=== PATIENT | female | born 1950 | race Two or more races ===

== ENCOUNTER 2017-11-26 18:49 | Inpatient (IN) | payer MEDICARE, MEDICAID ==
[~2017-11-26] VITALS: Ht 167.6 cm; Wt 94.1 kg
[2017-11-26] MEDS: FUROSEMIDE 20 MG/2 ML IV SCH (12:25)
[~2017-11-26 18:49] MED LIST: ACID1TAB3 PO; AMOX1TAB64 PO; CEFA1VIA2 IV; CIPR400V6 IV; DIABETES MED; ENAL10TA PO; ENOX40SY4 SQ; HIGH CHOLESTEROL MED; HYDR-3240 PO; INSU100I11 SC; NPH,100V SC; ONDA4SOL2 IV; OXYC1TAB7 PO; PIPE3.375 IV; POLY17PO5 PO; SIMV40TA3 PO; VANC750V2 IV
[2017-11-26] MEDS ORDERED: SODIUM CHLORIDE FLUSH 10ML SYR IVF ONE (19:30)
[2017-11-26 19:38] LABS: ALANINE AMINOTRANSFERASE 25 U/L (12-78); ALBUMIN 3.4 g/dL (3.4-5.0); ANION GAP 8 mmol/L (5-15); CALCIUM 9.1 mg/dL (8.5-10.1); CHLORIDE 110 mmol/L (98-107); CREATININE 1.79 mg/dL (0.55-1.02)
[2017-11-26 19:42] LABS: ALKALINE PHOSPHATASE 133 U/L (45-117); BASOPHILS % (AUTO) 1 % (0-1); BILIRUBIN,TOTAL 0.9 mg/dL (0.2-1.0); EOSINOPHILS # (AUTO) 0.29 x10^3/uL (0-0.4); EOSINOPHILS % (AUTO) 2 % (1-7); LYMPHOCYTES # (AUTO) 2.13 x10^3/uL (1-3.4); LYMPHOCYTES % (AUTO) 17 % (22-44); MD NO; MEAN CORPUSCULAR HEMOGLOBIN 30.3 pg (27.0-34.8); MEAN CORPUSCULAR HGB CONC 33.5 g/dL (32.4-35.8); MEAN CORPUSCULAR VOLUME 90.5 fL (80-100); MEAN PLATELET VOLUME 8.3 fL (7.4-10.4); MONOCYTES # (AUTO) 0.77 x10^3/uL (0.2-0.8); MONOCYTES % (AUTO) 6 % (2-9); NEUTROPHILS # (AUTO) 9.28 x10^3/uL (1.8-6.8); NEUTROPHILS % (AUTO) 74 % (42-75); PLATELET COUNT 285 x10^3/uL (130-400); RED BLOOD COUNT 4.65 x10^6/uL (3.82-5.3); RED CELL DISTRIBUTION WIDTH 14.4 % (9.6-15.2); TOTAL PROTEIN 8.7 g/dL (6.4-8.2)
[2017-11-26 19:49] LABS: INTERNATIONAL NORMALIZED RATIO 1.06 (0.93-1.1); PROTHROMBIN TIME 10.9 Seconds (9.6-11.5)
[2017-11-26] MEDS ORDERED: ATOR10TA9 PO (20:16)
[2017-11-26] MEDS ORDERED: INSU100I13 SQ (20:16)
[2017-11-26] MEDS ORDERED: MULT-758 PO (20:16)
[2017-11-26] MEDS ORDERED: METO25TA35 PO (20:16)
[2017-11-26] MEDS ORDERED: ASPI-515 PO (20:16)
[2017-11-26] MEDS ORDERED: LISI-167 PO (20:16)
[2017-11-26] MEDS ORDERED: AMLO2.5T PO (20:16)
[2017-11-26] MEDS ORDERED: FUROSEMIDE 40 MG/4 ML IV ONE (21:00)
[2017-11-26] MEDS ORDERED: FUROSEMIDE 20 MG/2 ML ONE (21:27)
[2017-11-26 22:09] VITALS: BP 156/73
[2017-11-26] MEDS ORDERED: hydrALAzine 20 MG/ML, 1ML IVPush PRN (23:30)
[2017-11-26] MEDS ORDERED: ACETAMINOPHEN 325 MG TABLET PO PRN (23:30)
[2017-11-26] MEDS ORDERED: ENOXAPARIN 40 MG/0.4 ML SQ SCH (23:30)
[2017-11-26] MEDS ORDERED: morphine SULFATE 10 MG/ML, 1ML IVPush PRN (23:30)
[2017-11-26] MEDS ORDERED: OXYcodone IR 5MG TABLET PO PRN (23:30)
[2017-11-26] MEDS ORDERED: BISACODYL 10 MG SUPP PR PRN (23:30)
[2017-11-26] MEDS ORDERED: LABETALOL 5MG/ML, 20ML IVPush PRN (23:30)
[2017-11-26] MEDS ORDERED: ONDANSETRON 2MG/ML, 2ML IVPush PRN (23:30)
[2017-11-26] MEDS ORDERED: ENALAPRILAT 1.25 MG/ML, 2ML IVPush PRN (23:30)
[2017-11-26] MEDS ORDERED: PROMETHAZINE 25 MG/ML, 1ML IM PRN (23:30)
[2017-11-26] MEDS ORDERED: DOCUSATE 100 MG CAPSULE PO PRN (23:30)
[2017-11-26] MEDS ORDERED: POLYETHYLENE GLYCOL 17 GM PACKET PO PRN (23:30)
[2017-11-26] MEDS ORDERED: ONDANSETRON ODT 4 MG PO PRN (23:30)
[2017-11-26 23:51] LABS: HEMOGLOBIN A1C 8.4 % (4.2-6.3)
[2017-11-26 23:52] LABS: FREE T4 (FREE THYROXINE) 1.31 ng/dL (0.76-1.46); THYROID STIMULATING HORMONE 3.87 mIU/L (0.358-3.740)
[2017-11-27] MEDS: METOPROLOL TARTRATE 25 MG TABLET PO SCH ×3 (00:33→20:49)
[2017-11-27] MEDS: INSULIN GLARGINE 100 UNITS/ML, PEN SQ-INSULIN SCH ×2 (00:33→20:48)
[2017-11-27 02:39] LABS: BASOPHILS % (AUTO) 0 % (0-1); EOSINOPHILS % (AUTO) 3 % (1-7); LYMPHOCYTES % (AUTO) 20 % (22-44); MEAN CORPUSCULAR HEMOGLOBIN 29.9 pg (27.0-34.8); MEAN CORPUSCULAR HGB CONC 33.3 g/dL (32.4-35.8); MEAN CORPUSCULAR VOLUME 89.8 fL (80-100); MEAN PLATELET VOLUME 8.1 fL (7.4-10.4); MONOCYTES % (AUTO) 7 % (2-9); NEUTROPHILS # (AUTO) 8.14 x10^3/uL (1.8-6.8); NEUTROPHILS % (AUTO) 70 % (42-75); PLATELET COUNT 266 x10^3/uL (130-400); RED CELL DISTRIBUTION WIDTH 14.6 % (9.6-15.2)
[2017-11-27 02:40] LABS: BASOPHILS # (AUTO) 0.01 x10^3/uL (0-0.1); LYMPHOCYTES # (AUTO) 2.34 x10^3/uL (1-3.4); MD NO; MONOCYTES # (AUTO) 0.83 x10^3/uL (0.2-0.8)
[2017-11-27 02:52] VITALS: BP 136/75
[2017-11-27 02:52] LABS: ALANINE AMINOTRANSFERASE 24 U/L (12-78); ALBUMIN 3.1 g/dL (3.4-5.0); ANION GAP 5 mmol/L (5-15); CALCIUM 8.9 mg/dL (8.5-10.1); CHLORIDE 110 mmol/L (98-107); CHOLESTEROL, TOTAL 99 mg/dL (140-239); CREATININE 1.84 mg/dL (0.55-1.02); TRIGLYCERIDES 96 mg/dL (50-200); VLDL CHOLESTEROL 19 mg/dL (0-25)
[2017-11-27 02:54] LABS: ALKALINE PHOSPHATASE 117 U/L (45-117); BILIRUBIN,TOTAL 0.9 mg/dL (0.2-1.0); CHOL/HDL RATIO 2.7; HDL CHOL % 37 % (28-40); HDL CHOLESTEROL (DIRECT) 37 mg/dL (40-60); LDL CHOLESTEROL,CALCULATED 43 mg/dL (54-169); LDL/HDL RATIO 1.2 (0.5-3.0); TOTAL PROTEIN 8.1 g/dL (6.4-8.2)
[2017-11-27 02:59] LABS: TROPONIN I < 0.015 ng/mL (0.000-0.045)
[2017-11-27 06:16] LABS: MICROSCOPIC NOT IND
[2017-11-27 06:21] LABS: CULTURE INDICATED? NO
[2017-11-27 06:33] VITALS: BP 144/83
[2017-11-27 08:25] LABS: TROPONIN I < 0.015 ng/mL (0.000-0.045)
[2017-11-27] MEDS: LISINOPRIL 10 MG TABLET PO SCH (08:38)
[2017-11-27] MEDS: MULTIVITAMIN 1 TABLET PO SCH (08:38)
[2017-11-27] MEDS: FUROSEMIDE 20 MG/2 ML IV SCH (08:39)
[2017-11-27] MEDS: ENOXAPARIN 30 MG/0.3 ML SQ SCH (08:39)
[2017-11-27 08:46] VITALS: BP 136/71
[2017-11-27] MEDS: ASPIRIN 81 MG TABLET EC PO SCH (08:51)
[2017-11-27] MEDS: FLUTICASONE/VILANTEROL 200-25MCG/INH INH SCH (08:51)
[2017-11-27] MEDS: INSULIN LISPRO 100 UNITS/ML, PEN SQ-INSULIN SCH ×4 (08:52→20:48)
[2017-11-27 13:01] VITALS: BP 133/77
[2017-11-27] MEDS: FUROSEMIDE 20 MG TABLET PO SCH (16:42)
[2017-11-27 19:09] VITALS: BP 133/78
[2017-11-28 01:19] VITALS: BP 125/74
[2017-11-28 05:21] LABS: BASOPHILS # (AUTO) 0.01 x10^3/uL (0-0.1); BASOPHILS % (AUTO) 0 % (0-1); EOSINOPHILS # (AUTO) 0.41 x10^3/uL (0-0.4); EOSINOPHILS % (AUTO) 4 % (1-7); LYMPHOCYTES # (AUTO) 2.38 x10^3/uL (1-3.4); LYMPHOCYTES % (AUTO) 20 % (22-44); MD NO; MEAN CORPUSCULAR HEMOGLOBIN 30.1 pg (27.0-34.8); MEAN CORPUSCULAR HGB CONC 33.4 g/dL (32.4-35.8); MEAN CORPUSCULAR VOLUME 90.3 fL (80-100); MEAN PLATELET VOLUME 8.1 fL (7.4-10.4); MONOCYTES # (AUTO) 0.77 x10^3/uL (0.2-0.8); MONOCYTES % (AUTO) 7 % (2-9); NEUTROPHILS % (AUTO) 70 % (42-75); PLATELET COUNT 274 x10^3/uL (130-400); RED BLOOD COUNT 5.08 x10^6/uL (3.82-5.3); RED CELL DISTRIBUTION WIDTH 14.5 % (9.6-15.2)
[2017-11-28 05:24] LABS: ANION GAP 9 mmol/L (5-15); CALCIUM 8.7 mg/dL (8.5-10.1); CHLORIDE 105 mmol/L (98-107)
[2017-11-28 05:26] LABS: CREATININE 1.96 mg/dL (0.55-1.02)
[2017-11-28] MEDS: INSULIN LISPRO 100 UNITS/ML, PEN SQ-INSULIN SCH ×4 (07:00→21:38)
[2017-11-28 07:44] VITALS: BP 135/76
[2017-11-28] MEDS: ENOXAPARIN 30 MG/0.3 ML SQ SCH (08:18)
[2017-11-28] MEDS: FLUTICASONE/VILANTEROL 200-25MCG/INH INH SCH (08:18)
[2017-11-28] MEDS: ASPIRIN 81 MG TABLET EC PO SCH (08:18)
[2017-11-28] MEDS: FUROSEMIDE 20 MG TABLET PO SCH ×2 (08:19→16:26)
[2017-11-28] MEDS: METOPROLOL TARTRATE 25 MG TABLET PO SCH ×2 (08:19→21:37)
[2017-11-28] MEDS: LISINOPRIL 10 MG TABLET PO SCH (08:19)
[2017-11-28] MEDS: MULTIVITAMIN 1 TABLET PO SCH (08:19)
[2017-11-28 13:57] VITALS: BP 128/75
[2017-11-28] MEDS ORDERED: FUROSEMIDE 20 MG/2 ML IV ONE (15:30)
[2017-11-28 18:55] VITALS: BP 140/90
[2017-11-28 21:36] VITALS: BP 138/78
[2017-11-28] MEDS: INSULIN GLARGINE 100 UNITS/ML, PEN SQ-INSULIN SCH (21:38)
[2017-11-29 03:58] VITALS: BP 165/78
[2017-11-29 04:19] VITALS: BP 140/65
[2017-11-29 05:54] LABS: BASOPHILS # (AUTO) 0.04 x10^3/uL (0-0.1); BASOPHILS % (AUTO) 0 % (0-1); EOSINOPHILS # (AUTO) 0.32 x10^3/uL (0-0.4); EOSINOPHILS % (AUTO) 2 % (1-7); LYMPHOCYTES # (AUTO) 2.46 x10^3/uL (1-3.4); LYMPHOCYTES % (AUTO) 19 % (22-44); MD NO; MEAN CORPUSCULAR HEMOGLOBIN 29.9 pg (27.0-34.8); MEAN CORPUSCULAR HGB CONC 33.4 g/dL (32.4-35.8); MEAN CORPUSCULAR VOLUME 89.3 fL (80-100); MEAN PLATELET VOLUME 8.2 fL (7.4-10.4); MONOCYTES # (AUTO) 0.99 x10^3/uL (0.2-0.8); MONOCYTES % (AUTO) 8 % (2-9); NEUTROPHILS # (AUTO) 9.34 x10^3/uL (1.8-6.8); NEUTROPHILS % (AUTO) 71 % (42-75); PLATELET COUNT 290 x10^3/uL (130-400); RED CELL DISTRIBUTION WIDTH 14.4 % (9.6-15.2)
[2017-11-29 06:00] LABS: ANION GAP 7 mmol/L (5-15); CALCIUM 9.1 mg/dL (8.5-10.1); CHLORIDE 105 mmol/L (98-107); CREATININE 2.07 mg/dL (0.55-1.02)
[2017-11-29 07:30] VITALS: BP 127/76
[2017-11-29] MEDS: FLUTICASONE/VILANTEROL 200-25MCG/INH INH SCH (10:10)
[2017-11-29] MEDS: INSULIN LISPRO 100 UNITS/ML, PEN SQ-INSULIN SCH ×4 (10:11→21:06)
[2017-11-29] MEDS: ENOXAPARIN 30 MG/0.3 ML SQ SCH (10:11)
[2017-11-29] MEDS: MULTIVITAMIN 1 TABLET PO SCH (10:11)
[2017-11-29] MEDS: ASPIRIN 81 MG TABLET EC PO SCH (10:11)
[2017-11-29] MEDS: FUROSEMIDE 20 MG TABLET PO SCH (10:12)
[2017-11-29] MEDS: METOPROLOL TARTRATE 25 MG TABLET PO SCH ×2 (10:12→21:06)
[2017-11-29] MEDS: LISINOPRIL 10 MG TABLET PO SCH (10:12)
[2017-11-29 11:01] LABS: MICROSCOPIC INDICATED
[2017-11-29 11:09] LABS: CULTURE INDICATED? YES
[2017-11-29 12:58] VITALS: BP 123/77
[2017-11-29] MEDS: CEFTRIAXONE 1,000 MG in SODIUM CHLORIDE 0.9% 50 ML IV SCH (16:09)
[2017-11-29 21:00] VITALS: BP 122/73
[2017-11-29] MEDS: INSULIN GLARGINE 100 UNITS/ML, PEN SQ-INSULIN SCH (21:06)
[2017-11-30 01:09] VITALS: BP 135/79
[2017-11-30 05:48] LABS: BASOPHILS # (AUTO) 0.05 x10^3/uL (0-0.1); BASOPHILS % (AUTO) 0 % (0-1); EOSINOPHILS # (AUTO) 0.39 x10^3/uL (0-0.4); EOSINOPHILS % (AUTO) 3 % (1-7); LYMPHOCYTES # (AUTO) 2.26 x10^3/uL (1-3.4); LYMPHOCYTES % (AUTO) 20 % (22-44); MD NO; MEAN CORPUSCULAR HEMOGLOBIN 29.9 pg (27.0-34.8); MEAN CORPUSCULAR HGB CONC 32.9 g/dL (32.4-35.8); MEAN CORPUSCULAR VOLUME 90.6 fL (80-100); MEAN PLATELET VOLUME 8.1 fL (7.4-10.4); MONOCYTES # (AUTO) 0.95 x10^3/uL (0.2-0.8); MONOCYTES % (AUTO) 8 % (2-9); NEUTROPHILS # (AUTO) 7.95 x10^3/uL (1.8-6.8); NEUTROPHILS % (AUTO) 69 % (42-75); PLATELET COUNT 289 x10^3/uL (130-400); RED BLOOD COUNT 4.86 x10^6/uL (3.82-5.3); RED CELL DISTRIBUTION WIDTH 14.1 % (9.6-15.2)
[2017-11-30 05:54] LABS: ANION GAP 8 mmol/L (5-15); CHLORIDE 105 mmol/L (98-107); CREATININE 2.33 mg/dL (0.55-1.02)
[2017-11-30 07:23] VITALS: BP 142/83
[2017-11-30] MEDS: INSULIN LISPRO 100 UNITS/ML, PEN SQ-INSULIN SCH ×4 (08:11→20:29)
[2017-11-30] MEDS: FLUTICASONE/VILANTEROL 200-25MCG/INH INH SCH (08:11)
[2017-11-30] MEDS: ASPIRIN 81 MG TABLET EC PO SCH (08:11)
[2017-11-30] MEDS: ENOXAPARIN 30 MG/0.3 ML SQ SCH (08:11)
[2017-11-30] MEDS: METOPROLOL TARTRATE 25 MG TABLET PO SCH ×2 (08:11→20:30)
[2017-11-30] MEDS: MULTIVITAMIN 1 TABLET PO SCH (08:11)
[2017-11-30] MEDS: LISINOPRIL 10 MG TABLET PO SCH (08:11)
[2017-11-30 10:07] LABS: CREATININE,URINE RANDOM 88.7 mg/dL
[2017-11-30 13:50] VITALS: BP 145/79
[2017-11-30] MEDS: CEFTRIAXONE 1,000 MG in SODIUM CHLORIDE 0.9% 50 ML IV SCH (14:19)
[2017-11-30 19:20] VITALS: BP 129/77
[2017-11-30 20:28] VITALS: BP 138/74
[2017-11-30] MEDS: INSULIN GLARGINE 100 UNITS/ML, PEN SQ-INSULIN SCH (20:30)
[2017-12-01 01:26] VITALS: BP 136/65
[2017-12-01 05:17] LABS: BASOPHILS # (AUTO) 0.04 x10^3/uL (0-0.1); BASOPHILS % (AUTO) 0 % (0-1); EOSINOPHILS # (AUTO) 0.36 x10^3/uL (0-0.4); EOSINOPHILS % (AUTO) 3 % (1-7); LYMPHOCYTES % (AUTO) 20 % (22-44); MD NO; MEAN CORPUSCULAR HEMOGLOBIN 30.1 pg (27.0-34.8); MEAN CORPUSCULAR HGB CONC 33.5 g/dL (32.4-35.8); MEAN CORPUSCULAR VOLUME 89.9 fL (80-100); MEAN PLATELET VOLUME 8.2 fL (7.4-10.4); MONOCYTES # (AUTO) 0.98 x10^3/uL (0.2-0.8); MONOCYTES % (AUTO) 9 % (2-9); NEUTROPHILS # (AUTO) 7.22 x10^3/uL (1.8-6.8); NEUTROPHILS % (AUTO) 67 % (42-75); PLATELET COUNT 285 x10^3/uL (130-400); RED BLOOD COUNT 4.81 x10^6/uL (3.82-5.3); RED CELL DISTRIBUTION WIDTH 14.1 % (9.6-15.2)
[2017-12-01 05:29] LABS: CALCIUM 8.7 mg/dL (8.5-10.1); CHLORIDE 107 mmol/L (98-107)
[2017-12-01 05:36] LABS: ALBUMIN 3.2 g/dL (3.4-5.0); ANION GAP 7 mmol/L (5-15); CREATINE KINASE, TOTAL 97 U/L (26-192); CREATININE 2.02 mg/dL (0.55-1.02)
[2017-12-01] MEDS: INSULIN LISPRO 100 UNITS/ML, PEN SQ-INSULIN SCH ×2 (07:00→12:24)
[2017-12-01 07:25] VITALS: BP 129/75
[2017-12-01] MEDS: MULTIVITAMIN 1 TABLET PO SCH (10:37)
[2017-12-01] MEDS: ENOXAPARIN 30 MG/0.3 ML SQ SCH (10:37)
[2017-12-01] MEDS: METOPROLOL TARTRATE 25 MG TABLET PO SCH (10:38)
[2017-12-01] MEDS: ASPIRIN 81 MG TABLET EC PO SCH (10:38)
[2017-12-01] MEDS: LISINOPRIL 10 MG TABLET PO SCH (10:38)
[2017-12-01] MEDS: FLUTICASONE/VILANTEROL 200-25MCG/INH INH SCH (10:39)
[2017-12-01] MEDS ORDERED: CEFT1FRO2 IV (11:09)
[2017-12-01] MEDS: CEFTRIAXONE 1,000 MG in SODIUM CHLORIDE 0.9% 50 ML IV SCH (12:56)
== END 2017-12-01 14:10 | DRG 291 ==
LOC: ED 21:12 → EDIP 21:30 → 4WST 21:57
PROVIDERS: ADMIT Internal Medicine; ATTEND Internal Medicine
DX: I13.0 Hypertensive heart and chronic kidney disease with heart failure and stage 1 through stage 4 chronic kidney disease, or unspecified chronic kidney disease (principal); J96.01 Acute respiratory failure with hypoxia; I50.33 Acute on chronic diastolic (congestive) heart failure; N17.9 Acute kidney failure, unspecified; R17 Unspecified jaundice; N39.0 Urinary tract infection, site not specified; N18.4 Chronic kidney disease, stage 4 (severe); D50.9 Iron deficiency anemia, unspecified; Z89.511 Acquired absence of right leg below knee; D72.829 Elevated white blood cell count, unspecified; E11.22 Type 2 diabetes mellitus with diabetic chronic kidney disease; E78.5 Hyperlipidemia, unspecified; J44.9 Chronic obstructive pulmonary disease, unspecified; T50.2X5A Adverse effect of carbonic-anhydrase inhibitors, benzothiadiazides and other diuretics, initial encounter; Z79.899 Other long term (current) drug therapy; E11.65 Type 2 diabetes mellitus with hyperglycemia
CPT/HCPCS: 36415; 71045; 76770; 78582; 80048; 80053; 80061; 80069; 81001; 81003; 82306; 82436; 82550; 82570; 82962; 83036; 83735; 83880; 83970; 84133; 84156; 84300; 84439; 84443; 84484; 84550; 85025; 85610; 85730; 87086; 93005; 93306; 99285; J0696; J1650; J1940; A9540; A9558; C9898; J1815

== ENCOUNTER 2019-08-01 00:40 | Inpatient (IN) | payer MEDICAID, MEDICARE ==
[~2019-08-01] VITALS: Ht 167.6 cm; Wt 110.1 kg
[~2019-08-01 00:40] MED LIST changes: +AMLO2.5T5 PO; +ASPI-515 PO; +ATOR10TA9 PO; +CEFT1FRO2 IV; +INSU100I13 SQ; +LISI-167 PO; +METO25TA35 PO; +MULT-758 PO; +SIMV40TA20 PO; -SIMV40TA3 PO
[2019-08-01 00:58] LABS: MEAN CORPUSCULAR HEMOGLOBIN 29.6 pg (27.0-34.8); MEAN CORPUSCULAR HGB CONC 32.2 g/dL (32.4-35.8); MEAN CORPUSCULAR VOLUME 92.1 fL (80-100); MEAN PLATELET VOLUME 8.1 fL (7.4-10.4); PLATELET COUNT 263 x10^3/uL (130-400); RED BLOOD COUNT 4.54 x10^6/uL (3.82-5.3); RED CELL DISTRIBUTION WIDTH 13.7 % (9.6-15.2)
[2019-08-01] MEDS ORDERED: EPINEPHRINE SYRINGE 0.1 MG/ML, 10ML ONE (01:07)
[2019-08-01 01:11] LABS: ALANINE AMINOTRANSFERASE 397 U/L (12-78); ALBUMIN 2.3 g/dL (3.4-5.0); ANION GAP 16 mmol/L (5-15); CALCIUM 8.5 mg/dL (8.5-10.1); CHLORIDE 102 mmol/L (98-107); CREATININE 2.68 mg/dL (0.55-1.02)
[2019-08-01 01:12] LABS: MD YES
[2019-08-01 01:14] LABS: BAND#(MANUAL) 0.38 x10^3/uL; BANDS%(MANUAL) 2 % (0-7); EOS#(MANUAL) 0.38 x10^3/uL (0.0-0.4); EOS% (MANUAL) 2 % (1-7); LYMPH#(MANUAL) 6.14 x10^3/uL (1-3.4); LYMPHS% (MANUAL) 32 % (22-44); METAMYELOCYTES# (MANUAL) 0.38 x10^3/uL (0-0); METAMYELOCYTES% (MANUAL) 2 % (0-1); MONOS#(MANUAL) 1.34 x10^3/uL (0.3-2.7); MONOS% (MANUAL) 7 % (2-9); MYELOCYTES# (MANUAL) 0.38 x10^3/uL (0-0); MYELOCYTES% (MANUAL) 2 % (0-0); NRBC % (MANUAL) 1 % (0-1); SEG#(MANUAL) 10.18 x10^3/uL (1.8-6.8); SEGS% (MANUAL) 53 % (42-75)
[2019-08-01 01:15] LABS: <PLATELET ESTIMATE> ADEQUATE; <PLT MORPHOLOGY> NORMAL PLT MORPH; <RBC MORPHOLOGY> NORMAL; ALKALINE PHOSPHATASE 238 U/L (45-117); BILIRUBIN,TOTAL 1.4 mg/dL (0.2-1.0); TOTAL PROTEIN 7.7 g/dL (6.4-8.2); TROPONIN I < 0.015 ng/mL (0.000-0.045)
--- NOTE | 2019-08-01 01:15 | NUR ---
LATE ENTRY: PT TRANSFERRED TO CT VIA GURNEY WITH RESP AND RN ESCORT.
--- NOTE | 2019-08-01 01:27 | NUR ---
PT RETURN FROM CT AT THIS TIME, WAS TRANSPORTED WITH [facility]. MAURA IN LOBBY.
--- NOTE | 2019-08-01 01:30 | NUR ---
LATE ENTRY: PRIOR TO LEAVING FOR CT, ERP REQUESTING 0.5 MG EPI IV BE GIVEN S/T PT'S HYPOTENSION. ERP WOULD LIKE CT STAT S/T PT UNRESPONSIVE WITH PUPILS FIXED. ERP WOULD LIKE CT PRIOR TO ANY FURTHER INTERVENTION FOR BP. PT WAS MEDICATED AND TRANSFERRED WITH CLOSE MONITORING IN PLACE.
--- NOTE | 2019-08-01 01:40 | NUR ---
SPOKE WITH MAURA BAGLEY, HE IS GOING TO GO HOME AND GET PTS CURRENT MEDICATIONS.
[2019-08-01] MEDS ORDERED: NOREPINEPHRINE 8 MG in SODIUM CHLORIDE 0.9% 242 ML IV PRN (01:57)
[2019-08-01] MEDS ORDERED: PLEASE ENTER HEIGHT MC SCH (02:00)
[2019-08-01] MEDS ORDERED: PIPERACILLIN/TAZO/PMX 3.375GM 50 ML IVPB ONE (02:00)
[2019-08-01] MEDS ORDERED: VANCOMYCIN PER PHARMACY MC ONE (02:00)
--- NOTE | 2019-08-01 02:00 | NUR ---
PT REMAINS HYPOTENSIVE. PER ERP, PT TO HAVE LEVOPHED DRIP INITIATED.
[2019-08-01 02:19] LABS: SALICYLATE LEVEL < 1.7 mg/dL (2.8-20.0)
--- NOTE | 2019-08-01 02:22 | NUR ---
RESP IN TO ADJUST VENT S/T PT WITH 88% ON 100% O2 PEEP OF 5. PT NOW FIO2 100%, PEEP OF 12 WITH O2 NOW 96%. LEVOPHED ADJUSTED AND PT'S BP IMPROVING. VANCO INFUSING AFTER BLOOD CULTURES X2 DRAWN. ERP TO START CENTRAL LINE.
[2019-08-01] MEDS ORDERED: VICTOZA (02:23)
[2019-08-01] MEDS ORDERED: LANTUS (02:23)
[2019-08-01] MEDS ORDERED: AMLO10TA8 PO (02:23)
[2019-08-01] MEDS ORDERED: FURO20TA3 PO (02:23)
[2019-08-01] MEDS ORDERED: VANCOMYCIN 2,200 MG in SODIUM CHLORIDE 0.9% 500 ML IV ONE (02:30)
[2019-08-01] MEDS ORDERED: SODIUM CHLORIDE 0.9% 1,000ML IVBOLUS ONE ×2 (02:30→03:30)
[2019-08-01 02:46] LABS: MICROSCOPIC INDICATED
[2019-08-01 02:51] LABS: AMPHETAMINE SCREEN, URINE Negative (Negative); BARBITURATE SCREEN, URINE Negative (Negative); BENZODIAZEPINE SCREEN, URINE Negative (Negative); CANNABINOID SCREEN, URINE Negative (Negative); COCAINE SCREEN, URINE Negative (Negative); METHADONE SCREEN, URINE Negative (Negative); OPIATE SCREEN, URINE Negative (Negative)
[2019-08-01 02:58] LABS: CULTURE INDICATED? YES
--- NOTE | 2019-08-01 03:01 | NUR ---
COVID SWAB COLLECTED PER ERP REQUEST. PT VSS. PT CONTINUES TO BE UNRESPONSIVE WITH NO SEDATION IN PLACE.
--- NOTE | 2019-08-01 03:25 | NUR ---
Discussed further fluids s/t lactic 7.7. Pt has received 1L PENSION ADVISER and 1L in ER for total of 2L NS. No further fluids to be given per ERP.
[2019-08-01] MEDS ORDERED: EPINEPHRINE 1 MG/ML, 1ML IVPush ONE (03:30)
--- NOTE | 2019-08-01 03:45 | NUR ---
DR PAREDES IS TALKING WITH PT NEPHEW REGARDING PT.
--- NOTE | 2019-08-01 04:23 | NUR ---
CENTRAL LINE PLACED BY ERP. DISCUSSED PT'S TEMP, ERP STATES TO LEAVE TEMP AT THIS TIME.
[2019-08-01] MEDS ORDERED: PIPERACILLIN/TAZO/PMX 3.375GM 50 ML ONE ×2 (04:45→13:16)
[2019-08-01] MEDS ORDERED: GLUCAGON 1 MG IM PRN ×2 (05:00→16:30)
[2019-08-01] MEDS ORDERED: VANCOMYCIN PER PHARMACY MC PRN (05:00)
[2019-08-01] MEDS ORDERED: DEXTROSE 4 GM TAB.CHEW PO PRN ×2 (05:00→16:30)
[2019-08-01] MEDS ORDERED: SENNA 176 MG/5 ML ORAL SOL NG PRN ×2 (05:00→16:30)
[2019-08-01] MEDS ORDERED: PHARMACY MAY ADJ FOR RENAL FX MC SCH ×2 (05:00→16:30)
[2019-08-01] MEDS ORDERED: LACTULOSE 20 GM/30 ML UDC NG PRN ×2 (05:00→16:30)
[2019-08-01] MEDS ORDERED: DEXTROSE 50%, 50ML SYRINGE IVPush PRN ×2 (05:00→16:30)
[2019-08-01] MEDS ORDERED: LIDOCAINE-MPF 1%, 2ML ENDO PRN ×2 (05:00→16:30)
[2019-08-01] MEDS ORDERED: BISACODYL 10 MG SUPP PR PRN ×2 (05:00→16:30)
[2019-08-01] MEDS ORDERED: SENNA/DOCUSATE TABLET NG PRN ×2 (05:00→16:30)
--- NOTE | 2019-08-01 05:00 | NUR ---
ERP DISCUSSED CASE WITH PULMONOLOGY FOR CONSULT. MD IS REQUESTING HYPOTHERMIA PROTOCOL TO BE STARTED. DISCUSSED WITH ERP CONCERNING EXCLUSION CRITERIA OF SUSPECTED IRREVERSIBLE ANOXIC BRAIN INJURY AND ARDS/SEPSIS. PROTOCOL HELD UNTIL IN PERSON EVAL COMPLETE BY PULMONOGIST.
--- NOTE | 2019-08-01 05:57 | NUR ---
PT RESTING IN BED, PT ARRIVED FROM TRAUMA 4 ROOM TO RESPITORY ER BED 37 FOR COVID RULE OUT PER RN HANDOFF REPORT
--- NOTE | 2019-08-01 05:58 | NUR ---
PT VENTED AND WITH [facility] OF 3
[2019-08-01] MEDS ORDERED: PHARMACOKINETIC MONITORING MC PRN (06:00)
--- NOTE | 2019-08-01 06:00 | NUR ---
PT TRANSFERRED TO [facility] S/T COVID R/O. REPORT TO [place] HEARD.
--- NOTE | 2019-08-01 07:28 | NUR ---
RECEIVED REPORT FROM ORQUIDEA KEATING. PATIENT LAYING IN BED, VSS.
[2019-08-01] MEDS: INSULIN LISPRO 100 UNITS/ML, PEN SQ-INSULIN SCH ×4 (08:00→21:00)
--- NOTE | 2019-08-01 08:23 | NUR ---
VENT SETTINGS: A/C PRVC FIO2 100% VOLUME 450 RATE 22 PEEP 12
--- NOTE | 2019-08-01 08:34 | NUR ---
PT TURNED WITH PILLOWS TO RIGHT SIDE.
[2019-08-01] MEDS ORDERED: INSULIN SINGLE DOSE, ER ONE ×2 (08:56→08:57)
[2019-08-01] MEDS ORDERED: SODIUM CHLORIDE FLUSH 10ML SYR IVF SCH (09:00)
[2019-08-01] MEDS ORDERED: INSULIN REGULAR 100 UNITS/ML, 3ML VIAL SQ-INSULIN ONE (09:00)
--- NOTE | 2019-08-01 09:06 | NUR ---
BENEFITS ADVISOR TO BEDSIDE AT 0850, CONFIRMED WITH HIM TO START HYPOTHERMIC PROTOCOL, EXCULSION CRITERIA CONSIDERED.
--- NOTE | 2019-08-01 09:20 | NUR ---
CRITICAL CARE DR. CABRERA PLACING ORDERS FOR HYPERTHERMIC PROTOCOL TO BE STARTED. HOSPITALIST AND PULMONOLOGY HAVE ASSESSED PT THIS AM. BOTH STATED THEY WANT HYPERTHERMIC PROTOCOL TO BE STARTED ON THIS PT.
[2019-08-01] MEDS ORDERED: PROPOFOL 100 ML IV PRN (09:23)
[2019-08-01] MEDS ORDERED: SODIUM PHOSPHATE 20 MMOL in SODIUM CHLORIDE 0.9% 250 ML IVPB PRN (09:28)
[2019-08-01] MEDS ORDERED: MAGNESIUM SULFATE 1 GM in DEXTROSE 5% 100 ML IVPB PRN (09:30)
[2019-08-01] MEDS: KSCALE TO 4.0 IV SCH ×4 (09:30→21:30)
[2019-08-01] MEDS ORDERED: FAMOTIDINE 20 MG/2 ML IVPush SCH (09:30)
[2019-08-01] MEDS ORDERED: VECURONIUM 10 MG IVPush PRN (09:30)
[2019-08-01] MEDS ORDERED: ARTIFICIAL TEARS OINT 3.5 GM EACHEYE SCH (09:30)
[2019-08-01] MEDS ORDERED: HEPARIN 5,000 UNITS/ML, 1ML SQ SCH (09:30)
[2019-08-01] MEDS ORDERED: FENTANYL PF 1,000 MCG in SODIUM CHLORIDE 0.9% 80 ML IV PRN (09:30)
[2019-08-01] MEDS ORDERED: PIPERACILLIN/TAZO/PMX 3.375GM 50 ML IV SCH (10:00)
--- NOTE | 2019-08-01 10:17 | NUR ---
REPORT GIVEN TO MAY HEARD. PT RESTING SOMULENTLY ON VENT. RT IN NOW TO CHECK VENT SETTINGS. HYPOTHERMIC PROTOCOL BEING INITIATED PER ORDERS.
--- NOTE | 2019-08-01 10:37 | NUR ---
INITIATED HYPOTHERMIA AT THIS TIME. [employer] OF 33 DEGREES CELCIUS. CURRENT PT TEMP 35.8. NIO SHIVERING FROM PT AT THIS TIME.
[2019-08-01] MEDS: REGULAR INSULIN 100 UNITS in SODIUM CHLORIDE 0.9% 99 ML IV PRN (10:54)
[2019-08-01] MEDS ORDERED: INSULIN INFUSION FOR ICU PROTOCOL XX SCH (11:00)
--- NOTE | 2019-08-01 11:52 | NUR ---
LAB IN ROOM FOR ART DRAW. COOLING MEASURES IN PLACE. PT CURRENT TEMP OF 34.6 WITH GOAL OF 33.0. NO SHIVERING NOTED. WARMING BLANKET APPLIED. PUPILS REMAIN AT 4 MM NON-REACTIVE TO LIGHT. NO SEDATION MEDICATIONS INITIATED. RESPIRATORY NOTIFIED THIS RN THAT THEY SPOKE WITH ARTIFICIAL FOLIAGE ARRANGER REGARDING COOLING MEASURES AND NEED FOR AN ART LINE. ARTIFICIAL FOLIAGE ARRANGER NOTIFIED RT THAT HE WOULD START AN ART LINE, BUT COOLING MEASURES NEED TO BE INITIATED.
--- NOTE | 2019-08-01 12:03 | NUR ---
PILLOWS REMOVED FROM RIGHT SIDE. PT POSITION FLAT AT THIS TIME.
--- NOTE | 2019-08-01 13:12 | NUR ---
RECIEVED PROTOCOL FROM ICU. CURRENT BGL OF 276. INSULIN ADJUSTED TO 2 U/HR. CBC, BMP, TRIGLYCERIDES, PHOSPHORUS LEVELS ORDERED,
[2019-08-01] MEDS ORDERED: FAMOTIDINE 20 MG/2 ML ONE (13:16)
[2019-08-01] MEDS ORDERED: HEPARIN 5,000 UNITS/ML, 1ML ONE (13:16)
[2019-08-01 13:23] LABS: BASOPHILS # (AUTO) 0.01 x10^3/uL (0-0.1); BASOPHILS % (AUTO) 0 % (0-1); EOSINOPHILS % (AUTO) 1 % (1-7); LYMPHOCYTES # (AUTO) 0.87 x10^3/uL (1-3.4); LYMPHOCYTES % (AUTO) 5 % (22-44); MD NO; MEAN CORPUSCULAR HEMOGLOBIN 29.5 pg (27.0-34.8); MEAN CORPUSCULAR HGB CONC 32.9 g/dL (32.4-35.8); MEAN CORPUSCULAR VOLUME 89.9 fL (80-100); MEAN PLATELET VOLUME 7.8 fL (7.4-10.4); MONOCYTES # (AUTO) 0.89 x10^3/uL (0.2-0.8); MONOCYTES % (AUTO) 5 % (2-9); NEUTROPHILS % (AUTO) 89 % (42-75); PLATELET COUNT 251 x10^3/uL (130-400); RED BLOOD COUNT 4.32 x10^6/uL (3.82-5.3); RED CELL DISTRIBUTION WIDTH 13.8 % (9.6-15.2)
[2019-08-01 13:28] LABS: ANION GAP 9 mmol/L (5-15); CHLORIDE 110 mmol/L (98-107); CREATININE 2.99 mg/dL (0.55-1.02); TRIGLYCERIDES 69 mg/dL (50-200)
--- NOTE | 2019-08-01 13:32 | NUR ---
TASK RN: CALL PLACED TO PHARM TO GET K+RIDER FOR K+ OF 3.7. NOTED CREAT INCREASING MD TO BE UPDATE.
--- NOTE | 2019-08-01 13:45 | NUR ---
TASK RN: VERIFIED WITH MD GARCIA THAT OK TO GIVE UP TO 20MEQ OF K+ ACCORDING TO CTREA OF 2.99. K RIDER RECEIVED FROM PHARM IS 10MEQ PER PROTOCOL.
[2019-08-01 13:46] VITALS: BP 128/77
--- NOTE | 2019-08-01 13:49 | NUR ---
800 ML URINE OUTPUT SINCE THIS RN ASSUMED CARE OF PT
--- NOTE | 2019-08-01 13:54 | NUR ---
TASK RN: NIDIA 5.537, DR GARCIA UPDATED. VERBAL ORDERS RECEIVED TO START HEPARIN DRIP AND DC SUBQ HEPARIN AT THIS TIME. VERBAL ORDER TO HAVE TROP REDRAWN IN 6 HOURS
[2019-08-01] MEDS ORDERED: POTASSIUM CHLORIDE PMX 100 ML IV ONE ×3 (14:00→22:30)
[2019-08-01] MEDS ORDERED: HEPARIN 5,000 UNITS/ML, 1ML IV PRN (15:00)
[2019-08-01] MEDS ORDERED: HEPARIN 5,000 UNITS/ML, 1ML IV ONE (15:00)
--- NOTE | 2019-08-01 15:10 | NUR ---
LATE ENTRY 1430- PT TRANFERRED TO ICU BED 1 WITH RT, 3 RN'S WITH ONE CLEAN. ARTIC SUN MACHINE TAKEN TO ICU WITH PT. ICU RFID SYSTEMS ARCHITECT TO REPLACE WITH CCU ARTIC SUN.
[2019-08-01] MEDS: HEPARIN 25,000 UNITS/250ML PMX 250 ML IV PRN (15:46)
[2019-08-01 15:55] LABS: CREATININE,URINE RANDOM 77.6 mg/dL
[2019-08-01] MEDS ORDERED: FENTANYL PF 100 MCG/2ML IVPush PRN (16:30)
[2019-08-01] MEDS: PROPOFOL 100 ML IV PRN (16:59)
[2019-08-01] MEDS: ARTIFICIAL TEARS OINT 3.5 GM EACHEYE SCH (16:59)
[2019-08-01] MEDS: SODIUM CHLORIDE FLUSH 10ML SYR IVF SCH (22:24)
[2019-08-01] MEDS: PIPERACILLIN/TAZO/PMX 2.25GM 50 ML IVPB SCH (22:24)
[2019-08-02] MEDS: KSCALE TO 4.0 IV SCH ×6 (01:30→22:40)
[2019-08-02] MEDS ORDERED: POTASSIUM CHLORIDE PMX 100 ML IV ONE ×2 (02:00→06:30)
[2019-08-02] MEDS: ARTIFICIAL TEARS OINT 3.5 GM EACHEYE SCH ×3 (02:02→17:05)
[2019-08-02] MEDS: PIPERACILLIN/TAZO/PMX 2.25GM 50 ML IVPB SCH ×4 (02:04→19:35)
[2019-08-02] MEDS: PROPOFOL 100 ML IV PRN ×3 (03:25→21:38)
[2019-08-02 05:29] LABS: MEAN CORPUSCULAR HEMOGLOBIN 29.4 pg (27.0-34.8); MEAN CORPUSCULAR HGB CONC 32.9 g/dL (32.4-35.8); MEAN CORPUSCULAR VOLUME 89.4 fL (80-100); MEAN PLATELET VOLUME 7.8 fL (7.4-10.4); PLATELET COUNT 246 x10^3/uL (130-400); RED BLOOD COUNT 4.66 x10^6/uL (3.82-5.3); RED CELL DISTRIBUTION WIDTH 13.7 % (9.6-15.2)
[2019-08-02 05:39] LABS: CHLORIDE 121 mmol/L (98-107)
[2019-08-02 05:45] LABS: ALANINE AMINOTRANSFERASE 343 U/L (12-78); ALKALINE PHOSPHATASE 189 U/L (45-117); ANION GAP 8 mmol/L (5-15); BILIRUBIN, DIRECT 0.7 mg/dL (0.1-0.2); BILIRUBIN,TOTAL 1.7 mg/dL (0.2-1.0); CALCIUM 7.9 mg/dL (8.5-10.1); CREATININE 2.89 mg/dL (0.55-1.02); TOTAL PROTEIN 6.9 g/dL (6.4-8.2)
[2019-08-02] MEDS: INSULIN LISPRO 100 UNITS/ML, PEN SQ-INSULIN SCH ×3 (06:00→14:20)
[2019-08-02 06:15] LABS: BASOPHILS # (AUTO) 0.07 x10^3/uL (0-0.1); BASOPHILS % (AUTO) 0 % (0-1); EOSINOPHILS # (AUTO) 0.51 x10^3/uL (0-0.4); EOSINOPHILS % (AUTO) 3 % (1-7); LYMPHOCYTES # (AUTO) 1.62 x10^3/uL (1-3.4); LYMPHOCYTES % (AUTO) 9 % (22-44); MD SCAN; MONOCYTES # (AUTO) 0.81 x10^3/uL (0.2-0.8); MONOCYTES % (AUTO) 4 % (2-9); NEUTROPHILS % (AUTO) 84 % (42-75)
[2019-08-02] MEDS: NOREPINEPHRINE 8 MG in SODIUM CHLORIDE 0.9% 242 ML IV PRN ×2 (06:19→22:29)
[2019-08-02] MEDS: SODIUM CHLORIDE FLUSH 10ML SYR IVF SCH ×2 (07:53→20:33)
[2019-08-02 08:06] LABS: FIO2 60 %
[2019-08-02] MEDS: FAMOTIDINE 20 MG/2 ML IVPush SCH (09:02)
[2019-08-02] MEDS ORDERED: VANCOMYCIN 1,800 MG in SODIUM CHLORIDE 0.9% 250 ML IV SCH (14:00)
[2019-08-02] MEDS: HEPARIN 25,000 UNITS/250ML PMX 250 ML IV PRN (15:12)
[2019-08-02] MEDS: REGULAR INSULIN 100 UNITS in SODIUM CHLORIDE 0.9% 99 ML IV PRN (19:36)
[2019-08-02] MEDS: CALCIUM CHLORIDE 13.6 MEQ in SODIUM CHLORIDE 0.9% 100 ML IVPB PRN (23:14)
[2019-08-03] MEDS: KSCALE TO 4.0 IV SCH (02:14)
[2019-08-03] MEDS: ARTIFICIAL TEARS OINT 3.5 GM EACHEYE SCH ×2 (02:32→07:35)
[2019-08-03] MEDS: PIPERACILLIN/TAZO/PMX 2.25GM 50 ML IVPB SCH ×2 (02:33→07:34)
[2019-08-03] MEDS: PROPOFOL 100 ML IV PRN (03:36)
[2019-08-03] MEDS: CALCIUM CHLORIDE 13.6 MEQ in SODIUM CHLORIDE 0.9% 100 ML IVPB PRN (04:12)
[2019-08-03] MEDS ORDERED: VANCOMYCIN 1,800 MG in SODIUM CHLORIDE 0.9% 250 ML IV ONE (05:00)
[2019-08-03] MEDS: NOREPINEPHRINE 8 MG in SODIUM CHLORIDE 0.9% 242 ML IV PRN (06:05)
[2019-08-03] MEDS ORDERED: SODIUM BICARBONATE 1 MEQ/ML, 50ML VIAL IVPush STA (06:19)
[2019-08-03 06:23] LABS: ANION GAP 6 mmol/L (5-15); CALCIUM 9.8 mg/dL (8.5-10.1); CHLORIDE 121 mmol/L (98-107); CREATININE 3.61 mg/dL (0.55-1.02)
[2019-08-03] MEDS ORDERED: SODIUM BICARB 8.4%, 50ML SYRINGE ONE ×2 (06:25→06:30)
[2019-08-03 06:32] LABS: MEAN CORPUSCULAR HEMOGLOBIN 29.7 pg (27.0-34.8); MEAN CORPUSCULAR HGB CONC 32.7 g/dL (32.4-35.8); MEAN CORPUSCULAR VOLUME 90.8 fL (80-100); MEAN PLATELET VOLUME 8.3 fL (7.4-10.4); PLATELET COUNT 308 x10^3/uL (130-400); RED BLOOD COUNT 4.58 x10^6/uL (3.82-5.3); RED CELL DISTRIBUTION WIDTH 14.8 % (9.6-15.2)
[2019-08-03 06:54] LABS: MD YES
[2019-08-03 06:56] LABS: BANDS%(MANUAL) 5 % (0-7); BASOS% (MANUAL) 1 % (0-1); EOS% (MANUAL) 4 % (1-7); LYMPHS% (MANUAL) 9 % (22-44); MONOS% (MANUAL) 6 % (2-9); NRBC % (MANUAL) 1 % (0-1); SEGS% (MANUAL) 75 % (42-75)
[2019-08-03 06:57] LABS: <PLATELET ESTIMATE> ADEQUATE; <PLT MORPHOLOGY> NORMAL PLT MORPH
[2019-08-03 07:01] LABS: <RBC MORPHOLOGY> NORMAL
[2019-08-03] MEDS: FAMOTIDINE 20 MG/2 ML IVPush SCH (07:34)
[2019-08-03] MEDS: SODIUM CHLORIDE FLUSH 10ML SYR IVF SCH (07:35)
[2019-08-03] MEDS ORDERED: EPINEPHRINE 1 MG/ML, 1ML ONE (12:21)
[2019-08-03] MEDS ORDERED: MORPHINE SULFATE 4 MG/ML, 1ML IVPush PRN (13:30)
[2019-08-03] MEDS ORDERED: LORazepam 2 MG/ML, 1ML IV ONE (13:30)
[2019-08-03] MEDS ORDERED: MORPHINE SULFATE 4 MG/ML, 1ML IV ONE (13:30)
[2019-08-03] MEDS ORDERED: ONDANSETRON 2MG/ML, 2ML IVPush PRN (13:30)
[2019-08-03] MEDS ORDERED: SCOPOLAMINE 1MG PATCH TD PRN (13:30)
[2019-08-03] MEDS ORDERED: LORazepam 2 MG/ML, 1ML IVPush PRN (13:30)
[2019-08-03] MEDS ORDERED: NOREPINEPHRINE 8 MG in SODIUM CHLORIDE 0.9% 242 ML IV PRN (15:30)
== END 2019-08-04 01:10 | disposition expired | DRG 871 ==
LOC: ED 01:27 → EDIP 04:43 → ICU 14:42
PROVIDERS: ADMIT Internal Medicine; ATTEND Hospitalist
PROC: 5A1945Z Respiratory Ventilation, 24-96 Consecutive Hours (ICD-10-PCS; principal; 2019-08-01)
PROC: 0BH17EZ Insertion of Endotracheal Airway into Trachea, Via Natural or Artificial Opening (ICD-10-PCS; 2019-08-01)
PROC: 05HM33Z Insertion of Infusion Device into Right Internal Jugular Vein, Percutaneous Approach (ICD-10-PCS; 2019-08-01)
PROC: B543ZZA Ultrasonography of Right Jugular Veins, Guidance (ICD-10-PCS; 2019-08-01)
DX: A41.9 Sepsis, unspecified organism (principal); J96.01 Acute respiratory failure with hypoxia; I21.4 Non-ST elevation (NSTEMI) myocardial infarction; J18.9 Pneumonia, unspecified organism; R65.21 Severe sepsis with septic shock; G93.1 Anoxic brain damage, not elsewhere classified; I13.0 Hypertensive heart and chronic kidney disease with heart failure and stage 1 through stage 4 chronic kidney disease, or unspecified chronic kidney disease; E87.2 Acidosis; I50.30 Unspecified diastolic (congestive) heart failure; N17.9 Acute kidney failure, unspecified; Z99.11 Dependence on respirator [ventilator] status; Z51.5 Encounter for palliative care; I46.9 Cardiac arrest, cause unspecified; E78.5 Hyperlipidemia, unspecified; N18.3 Chronic kidney disease, stage 3 (moderate); E11.22 Type 2 diabetes mellitus with diabetic chronic kidney disease; E11.65 Type 2 diabetes mellitus with hyperglycemia; D72.823 Leukemoid reaction; Z89.511 Acquired absence of right leg below knee; Z20.828 Contact with and (suspected) exposure to other viral communicable diseases
CPT/HCPCS: 31500; 36600; 70450; 71045; 80048; 80053; 80076; 80202; 80307; 81001; 82330; 82570; 82803; 82962; 83036; 83605; 83735; 83880; 84100; 84132; 84145; 84300; 84443; 84478; 84484; 85025; 85520; 87040; 87070; 87081; 87086; 87205; 93005; 94002; 94003; 96361; 96365; 96366; 96375; G0378; J0171; J1644; J2543; J2704; J3370; J3475; J3480; J1815; J2060; J2270; J3490; J7030; J7040; J7050